=== PATIENT | male | born 1975 | race Caucasian/White ===

== ENCOUNTER 2017-03-27 09:48 | Day surgery (SDC) | payer OTHER ==
[~2017-03-27 09:48] MED LIST: SODIUM CHLORIDE 0.9% 1,000 ML IV SCH
[2017-03-27 10:50] LABS: Basophils # (A) 0.1 k/uL (0-0.2); Basophils % (A) 1 %; Eosinophils # (A) 0.3 k/uL (0-0.7); Eosinophils % (A) 3 %; HCT 42.9 % (39.0-53.0); HGB 14.4 gm/dL (13.0-17.5); Lymphocytes # (A) 2.3 k/uL (1.0-4.8); Lymphocytes % (A) 26 %; MCH 30.6 pg (25.0-35.0); MCHC 33.6 g/dL (31.0-37.0); MCV 91.3 fL (80.0-100.0); Mean Platelet Volume 7.5; Monocytes # (A) 0.6 k/uL (0-1.0); Monocytes % (A) 7 %; Neutrophils # (A) 5.3 k/uL (1.3-7.7); Neutrophils % (A) 60 %; Platelet Count 280 k/uL (150-450); RDW 13.4 % (11.5-15.5); WBC 8.7 k/uL (3.8-10.6)
[2017-03-27 10:53] LABS: Anion Gap 9 mmol/L; Blood Urea Nitrogen 25 mg/dL (9-20); Calcium 9.4 mg/dL (8.4-10.2); Carbon Dioxide 26 mmol/L (22-30); Chloride 107 mmol/L (98-107); Glucose 109 mg/dL (74-99); Potassium 4.4 mmol/L (3.5-5.1); Sodium 142 mmol/L (137-145)
[2017-03-27] MEDS ORDERED: LIDOCAINE 1% INJ 10MG/ML (20 ML MDV) ONE (11:36)
[2017-03-27] MEDS ORDERED: PROTAMINE SULFATE 10 MG/ML 5 ML VIAL IV ONE (11:36)
[2017-03-27] MEDS ORDERED: PROPOFOL 10 MG/ML 20 ML VIAL IV ONE (11:36)
[2017-03-27] MEDS ORDERED: HEPARIN SODIUM,PORCINE 10,000 UNIT/ML 1 ML VIAL ONE (11:36)
[2017-03-27] MEDS ORDERED: FUROSEMIDE 10 MG/ML 2 ML VIAL ONE (11:36)
[2017-03-27] MEDS ORDERED: ISOPROTERENOL 250 MCG/1.25 ML SYR IV ONE (11:36)
[2017-03-27] MEDS ORDERED: HYDROmorphone (PF) 1 MG/ML ONE (11:36)
[2017-03-27] MEDS ORDERED: fentaNYL (PF) 50 MCG/ML 2 ML AMP ONE (11:36)
[2017-03-27] MEDS ORDERED: MIDAZOLAM 2 MG/2 ML VIAL ONE (11:36)
[2017-03-27] MEDS ORDERED: SUCCINYLCHOLINE CHLORIDE 100 MG/5 ML SYR IV ONE (11:36)
[2017-03-27] MEDS ORDERED: LIDOCAINE 2% INJ 20 MG/ML SQ ONE (12:22)
[2017-03-27] MEDS ORDERED: HEPARIN SOD,PORK IN 0.45% NACL 25,000 UNIT in 0.45% NACL 1 500ML.BAG IV ONE ×2 (12:55)
[2017-03-27] MEDS ORDERED: HYDROcodone/APAP 5-325MG 1 EACH TAB PO PRN (14:20)
[2017-03-27] MEDS ORDERED: ACETAMINOPHEN TAB 325 MG TAB PO PRN (14:20)
[2017-03-27] MEDS ORDERED: ACETAMINOPHEN IV (For NPO) 1,000 MG in EMPTY BAG 1 BAG IVPB ONE (14:20)
[2017-03-27] MEDS ORDERED: IOHEXOL 350 MG/ML 100 ML BOTTLE INJ ONE (14:24)
[2017-03-27] MEDS ORDERED: SODIUM CHLORIDE 0.9% 1,000 ML IV ONE (14:29)
--- NOTE | 2017-03-27 14:37 | P.PCN ---
Preoperative Diagnosis: Procedures performed ([facility] - CRYO Ablation) Indication for the procedure, symptomatic A. fib with RVR, paroxysmal and refractory to 2 antiarrhythmic drugs Procedures performed Invasive hemodynamic monitoring while general anesthesia, right femoral arterial line for monitoring and sampling Comprehensive diagnostic EP study with attempted arrhythmia induction CS pacing and recording Drug infusion Catheter the mapping of the tachycardia (NOT 3D mapping) Intracardiac echocardiography Pulmonary vein isolation with transseptal and comprehensive EPS, [id number] Procedure details Patient was brought to the EP lab in a fasting state. Written informed consent was obtained prior to the procedure. Procedure performed under general anesthesia After initial muscle relaxant use, muscle relaxants were not given thereafter in order to assess phrenic nerve during procedure Patient prepped and draped as per protocol Full cryo-set up with standard preparation of the cryoablation tools done Femoral Venous access obtained on the right and left groins Sheaths placed Diagnostic catheters for the high right atrium, phrenic nerve stimulation and pacing, His bundle, RV and coronary sinus placed Intracardiac echo catheter placed Long sheath placed in the right atrium Left and right transseptal catheterization performed under intracardiac echo guidance Intravenous heparin with aCT above 300 Later, catheter positioning and balloon positioning under intracardiac echo Baseline measurements Sinus cycle length 823 ms, AZ interval 113 ms, QRS 97 ms and QT interval 378 ms. AH 43 ms, HV 41 ms Comprehensive diagnostic EP study with drug infusion Atrial pacing performed from the high right atrium and the coronary sinus Sinus recovery times at 600 504 ms were 1149, 1260 and 1304 ms. Corresponding currently sinus recovery times were within normal limits AV node Wenckebach block 320 ms Atrial extra stimulation 500/200 ms atrial ERP On Isuprel AV node Wenckebach block less than 200 ms On Isuprel VA Wenckebach block less than 200 ms No atrial fibrillation induced on Isuprel Transseptal catheterization performed RA pressure 9/2 LA pressure is 14/4 Transseptal catheterization performed with standard sheath. The cryoablation sheath was then placed with an over the wire exchange without any acute complications. All 4 pulmonary veins were isolated in the following sequence: Left superior followed by left inferior followed by right superior followed by right inferior The cryo-ablation balloon was placed at the os of each vein 1.5 mL of IV dye was injected to confirm an occluded vein Goal during cryoablation was to achieve -30C in the first 30 seconds. If not the balloon was repositioned to obtain this result After completion of Cryoblation with durations from 180-240 seconds, entrance block was confirmed with the Attain circular catheter in a roving fashion around the antrum of the pulmonary veins Phrenic nerve pacing was performed from the SVC, right innominate vein area and diaphragm voltage was monitored as well as manually Parameter goals for each cryo freeze -30C by 30 seconds -40C by 60 seconds Mediated between minus 40-55 Thaw time greater than 10 seconds Balloon visualized by intracardiac echo to ensure that the proximal one third was within the left atrium/antrum Left superior pulmonary vein 129 seconds followed by 180 seconds cryoablation lesions. Time to effect was 22 seconds in the second cryoablation Complete entrance and exit block Left inferior pulmonary vein 61 seconds followed by a 240 second cryoablation lesion on the second ablation time to effect was 53 seconds complete entrance and exit block Right superior pulmonary vein, during phrenic nerve pacing 242nd cryoablation, complete entrance and exit block of right superior and right middle of May veins Right inferior pulmonary vein, during phrenic nerve pacing 90+120 seconds cryoablation, complete entrance and exit block At the end of the procedure the Achieve catheter was once again used to check for entrance block Phrenic nerve stimulation was performed to confirm diaphragmatic stimulation the end of the procedure Cine fluoroscopy was performed at the very end of the procedure to confirm movement of both diaphragms with inspiration and expiration At the end of the procedure the patient was extubated Heparin was reversed Venous sheaths were removed and hemostasis assured Result Successful pulmonary vein isolation using cryo-ablation Complete entrance block and exit block in all 4 veins confirmed No evidence for phrenic nerve injury Anesthesia: GETA Condition: stable Disposition: floor
[2017-03-27 16:32] VITALS: BMI 34.2
[2017-03-27] MEDS ORDERED: PROPAFENONE 150 MG TAB PO SCH (21:00)
[2017-03-27] MEDS: APIXABAN 5 MG TAB PO SCH (21:18)
[2017-03-27] MEDS: FLECAINIDE 50 MG TAB PO SCH (21:18)
[2017-03-28 07:37] VITALS: RESP 18
[2017-03-28] MEDS: APIXABAN 5 MG TAB PO SCH (08:29)
[2017-03-28] MEDS: FLECAINIDE 50 MG TAB PO SCH (08:29)
[2017-03-28] MEDS ORDERED: APIXABAN 5 MG TAB PO SCH (09:00)
--- NOTE | 2017-03-28 11:05 | P.DS ---
Providers Attending physician: Jovan Hall Primary care physician: [facility] Course: Patient is doing well from a cardiac standpoint. He has a vague discomfort in the chest but no pain. He is lying comfortably in bed. No JVD mild sore throat no dizziness lightheadedness. He looks comfortable. No respiratory distress Groin site healed well no hematoma abdomen soft nontender on examination Heart sounds S1 and S2 are normal no murmurs or gallops Breath sounds are clear no rhonchi no crackles No JVD Impression Symptomatic paroxysmal atrial fibrillation with RVR, refractory to class on antiarrhythmic drug therapy, both flecainide and Rythmol Status post pulmonary vein isolation, successful with entrance and exit block, cryoablation Plan Ambulate in the hallways and if groins healing well than discharge by 5 PM today Continue anticoagulation for at least 2 months post ablation Follow-up in 1-2 weeks for a groin check Patient Condition at Discharge: Stable Plan - Discharge Summary Discharge Rx Participant: Yes New Discharge Prescriptions: Continue RX: Apixaban [Eliquis] 5 mg PO BID No Action RX: Flecainide Acetate 100 mg PO BID Discharge Medication List RX: Apixaban [Eliquis] 5 mg PO BID 03/22/17 [History] RX: Flecainide Acetate 100 mg PO BID 03/27/17 [History] Follow up Appointment(s)/Referral(s): Jovan Hall MD [STAFF PHYSICIAN] - 2 Weeks (Appointment made for groin check on Apr.01 at 8:45am.) Activity/Diet/Wound Care/Special Instructions: Post EP study - Ablation instructions 1. Keep access sites dry for 2 days. 2. No heavy lifting or straining for 2 days. 3. Avoid bending the hips repeatedly for 2 days. 4. You may go up and down stairs slowly Call if the following is noted 1. Bleeding, increasing swelling or pain at the access sites. 2. Increasing chest discomfort, especially upon taking a deep breath. 3. Increasing shortness of breath, at rest or with exertion. 4. Undue cough / phlegm 5. Difficulty or pain while swallowing. 6. Pain or change in color in the extremities. 7. Fever, chills, rigors. 8. Increasing headache or neurologic symptoms. 9. Dizziness, fainting, palpitations Continue ELIQUIS, continue Rythmol Follow Dr. Chung in 2 weeks for a groin check Discharge home in hemodynamically stable ambulate in the hallways no groin problems and asymptomatic on march after 5 PM Discharge Disposition: HOME SELF-CARE
[2017-03-28 11:22] VITALS: BP 125/78; PULSE 83; TEMP 98.4
== END 2017-03-28 17:24 | disposition home or self-care (01) ==
LOC: CATHEP 09:48 → 3OBS 14:25 → CATHEP 03-28 17:24
PROVIDERS: ATTEND Internal Medicine Clinical Cardiac Electrophysiology
DX: I48.0 Paroxysmal atrial fibrillation (principal); E78.5 Hyperlipidemia, unspecified; R03.0 Elevated blood-pressure reading, without diagnosis of hypertension; Z79.01 Long term (current) use of anticoagulants; Z79.899 Other long term (current) drug therapy; Z87.891 Personal history of nicotine dependence
CPT/HCPCS: 85347; 93623; 93662; 93609; 93656; 80048; 85025; C1769 ×4; C1894 ×3; C1730 ×3; C1759; C1893; C1733; C1766; J2001 ×2; J2250; J2720; J1644 ×2; J1940; Q9967; J3010; J1170; J0131; J0330; J2704

== ENCOUNTER → 2019-03-13 | Outpatient (CLI) | payer OTHER ==
--- NOTE | 2019-03-13 17:57 | XR ---
EXAMINATION TYPE: XR lumbar spine 2 or 3V DATE OF EXAM: 03/13/2019 COMPARISON: NONE HISTORY: Low back pain TECHNIQUE: 3 views FINDINGS: Lumbar vertebra have normal alignment. Posterior elements are intact. There is no compressi on fracture. Relate joints appear normal. IMPRESSION: Negative lumbar spine exam. No fracture.
== END | disposition home or self-care (01) ==
LOC: RAD 16:59
PROVIDERS: ATTEND Emergency Medicine
DX: S33.5XXA Sprain of ligaments of lumbar spine, initial encounter (principal)
CPT/HCPCS: 72100

== ENCOUNTER 2021-04-09 11:20 | Emergency (ER) | payer BC, OTHER ==
[2021-04-09 11:28] VITALS: RESP 18; TEMP 97.9
--- NOTE | 2021-04-09 12:19 | ED ---
General Adult HPI - General Chief complaint: Extremity Problem,Nontraumatic Stated complaint: lt knee pain Time Seen by Provider: 04/09/21 11:45 Source: patient, RN notes reviewed Mode of arrival: ambulatory Limitations: no limitations - History of Present Illness Initial comments: Patient is a pleasant 45-year-old male presenting to the emergency Department with left knee pain. Patient does have history of fracture as a child and occasionally does get discomfort. Patient was moving heavy objects yesterday when he felt sudden discomfort. Discomfort is inside the knee. Discomfort increases with movement. Patient is able to bear weight. No weakness. - Related Data Previous Rx's Medication Instructions Recorded Ibuprofen [Motrin] 600 mg PO Q6HR PRN #20 tab 04/09/21 Allergies Allergy/AdvReac Type Severity Reaction Status Date / Time bee venom protein (honey bee) Allergy Anaphylaxis Verified 04/09/21 12:38 cortisone AdvReac Given Verified 04/09/21 12:38 Benadryl/Cortisone together"insides felt like on fire" diphenhydramine AdvReac Given Verified 04/09/21 12:38 [From Benadryl] Benadryl/Cortisone together"insides felt like on fire" onion AdvReac Canker Verified 04/09/21 12:38 Sores Review of Systems ROS Statement: Those systems with pertinent positive or pertinent negative responses have been documented in the HPI. ROS Other: All systems not noted in ROS Statement are negative. Constitutional: Denies: fever Eyes: Denies: eye pain ENT: Denies: ear pain Respiratory: Denies: cough Cardiovascular: Denies: chest pain Endocrine: Denies: fatigue Gastrointestinal: Denies: abdominal pain Genitourinary: Denies: dysuria Musculoskeletal: Reports: arthralgia Skin: Denies: rash Neurological: Denies: weakness Past Medical History Past Medical History: Atrial Fibrillation, Sleep Apnea/CPAP/BIPAP Additional Past Medical History / Comment(s): Uses CPAP. History of Any Multi-Drug Resistant Organisms: MRSA Date of last positivie culture/infection: 2005 MDRO Source:: foot right baby toe Past Surgical History: No Surgical Hx Reported Additional Past Surgical History / Comment(s): Lower intestine fistula surgery. Past Anesthesia/Blood Transfusion Reactions: No Reported Reaction Past Psychological History: No Psychological Hx Reported Smoking Status: Current every day smoker Past Alcohol Use History: None Reported Past Drug Use History: Marijuana - Past Family History Father Family Medical History: Myocardial Infarction ([place]) Additional Family Medical History / Comment(s): in early 60's General Exam Limitations: no limitations General appearance: alert, in no apparent distress Head exam: Present: normocephalic Eye exam: Present: normal appearance Neck exam: Present: normal inspection Respiratory exam: Present: normal lung sounds bilaterally Cardiovascular Exam: Present: regular rate, normal rhythm Expanded Peripheral pulses: 2+: Posterior Tibialis (L), Dorsalis Pedis (L) GI/Abdominal exam: Present: soft. Absent: tenderness Extremities exam: Present: tenderness (Mild anterior knee tenderness) Left Knee exam: Present: normal inspection, full ROM, tenderness. Absent: swelling, abrasion, laceration, ecchymosis, deformity, crepitus, dislocation, erythema, pain/laxity with valgus, pain/laxity with varus Neurological exam: Present: alert Psychiatric exam: Present: normal affect, normal mood Skin exam: Present: normal color Course Vital Signs 04/09/21 11:24 Temperature 97.9 F Pulse Rate 99 Respiratory 18 Rate Blood Pressure 144/99 O2 Sat by Pulse 97 Oximetry Medical Decision Making - Radiology Data Radiology results: image reviewed (Left knee x-ray shows no acute process) Disposition Clinical Impression: Sprain of left knee Disposition: HOME SELF-CARE Condition: Stable Instructions (If sedation given, give patient instructions): Knee Pain (ED) Additional Instructions: Please follow-up with primary care physician or orthopedics in the next couple days for recheck. Ice to affected area. Limit weightbearing and movement of the leg. Use knee immobilizer, provided. Return for increased pain, swelling, fever, worsening or changing symptoms or other concerns. Prescription for Motrin 600 to pharmacy Prescriptions: Ibuprofen [Motrin] 600 mg PO Q6HR PRN #20 tab PRN Reason: Pain Is patient prescribed a controlled substance at d/c from ED?: No Referrals: Shiela Diez DO [Doctor of Osteopathic Medicine] - 1-2 days Navneet Up MD [STAFF PHYSICIAN] - 1-2 days Time of Disposition: 12:46
--- NOTE | 2021-04-09 12:31 | XR ---
EXAMINATION TYPE: XR knee complete LT DATE OF EXAM: 04/09/2021 COMPARISON: NONE HISTORY: Pain TECHNIQUE: Three views are submitted. FINDINGS: Joint spaces are preserved. Osseous structures are intact. No acute fracture seen. Minimal spurrin g along the medial compartment of the knee joint. There is a well-circumscribed lucent lesion involvi ng the proximal tibia likely benign IMPRESSION: 1. No acute fracture or dislocation.
[2021-04-09] MEDS ORDERED: ACET/COD 300 MG/30 MG STARTER PACK 6 TAB BTL PO STA (12:40)
[2021-04-09] MEDS ORDERED: KETOROLAC 15 MG/ML 1 ML VIAL IM STA (12:40)
[2021-04-09 13:01] VITALS: BP 131/87; PULSE 77
== END 2021-04-09 13:00 | disposition home or self-care (01) ==
LOC: EC 11:20
DX: S83.92XA Sprain of unspecified site of left knee, initial encounter (principal); F17.200 Nicotine dependence, unspecified, uncomplicated; I48.91 Unspecified atrial fibrillation; Z91.030 Bee allergy status; Z88.8 Allergy status to other drugs, medicaments and biological substances; Z91.018 Allergy to other foods; X50.0XXA Overexertion from strenuous movement or load, initial encounter
CPT/HCPCS: 73562; 99283; 96372; J1885

== ENCOUNTER → 2021-05-03 | Outpatient (CLI) | payer OTHER ==
--- NOTE | 2021-05-03 16:39 | XR ---
EXAMINATION TYPE: XR tibia fibula LT DATE OF EXAM: 05/03/2021 COMPARISON: NONE HISTORY: Pain TECHNIQUE: 4 views FINDINGS: There is minor spurring at the distal tibia. Ankle mortise is anatomic. Knee joint is intac t. I see no fracture nor dislocation. IMPRESSION: Negative left tibia and fibula exam.
--- NOTE | 2021-05-03 16:40 | XR ---
EXAMINATION TYPE: XR knee complete LT DATE OF EXAM: 05/03/2021 COMPARISON: NONE HISTORY: Pain TECHNIQUE: 3 views FINDINGS: There is no sign of fracture nor dislocation. Joint spaces are fairly normal. There is mild spurring of the medial femoral and tibial condyles. There is no sign of joint effusion. IMPRESSION: Minor osteoarthritis. No fracture.
== END | disposition home or self-care (01) ==
LOC: RADXRMAIN 16:08
PROVIDERS: ATTEND Emergency Medicine
DX: S80.12XA Contusion of left lower leg, initial encounter (principal); S80.02XA Contusion of left knee, initial encounter; X58.XXXA Exposure to other specified factors, initial encounter

== ENCOUNTER 2023-05-05 19:57 | Emergency (ER) | payer OTHER ==
[2023-05-05 20:27] VITALS: RESP 16; TEMP 98
[2023-05-05] MEDS: SODIUM CHLORIDE 0.9% 1,000 ML IV STA (20:49)
[2023-05-05] MEDS: ONDANSETRON 4 MG/2 ML VIAL IVP STA (20:51)
[2023-05-05] MEDS: KETOROLAC 15 MG/ML 1 ML VIAL IVP STA (20:53)
[2023-05-05] MEDS: MORPHINE SULFATE 4 MG/ML SYRINGE IVP STA (20:55)
[2023-05-05 21:11] LABS: Basophils # (A) 0.1 k/uL (0-0.2); Basophils % (A) 1 %; Eosinophils # (A) 0.3 k/uL (0-0.7); Eosinophils % (A) 3 %; HCT 45.4 % (39.0-53.0); HGB 15.6 gm/dL (13.0-17.5); Lymphocytes # (A) 4.2 k/uL (1.0-4.8); Lymphocytes % (A) 33 %; MCH 30.9 pg (25.0-35.0); MCHC 34.3 g/dL (31.0-37.0); MCV 90.3 fL (80.0-100.0); Monocytes # (A) 0.8 k/uL (0-1.0); Monocytes % (A) 6 %; Neutrophils # (A) 7.3 k/uL (1.3-7.7); Neutrophils % (A) 56 %; Platelet Count 322 k/uL (150-450); RBC 5.03 m/uL (4.30-5.90); RDW 12.9 % (11.5-15.5)
[2023-05-05 21:28] LABS: ALT 18 U/L (4-49); AST 21 U/L (17-59); African American GFR (CKD) >90 (>60 ml/min/1.73 sqM); Albumin 4.4 g/dL (3.5-5.0); Alkaline Phosphatase 78 U/L (38-126); Amylase 62 U/L (30-110); Anion Gap 11 mmol/L; Blood Urea Nitrogen 22 mg/dL (9-20); Calcium 9.7 mg/dL (8.4-10.2); Carbon Dioxide 21 mmol/L (22-30); Chloride 104 mmol/L (98-107); Glucose 160 mg/dL (74-99); Lipase 341 U/L (23-300); Non-African American GFR(CKD) >90 (>60 ml/min/1.73 sqM); Potassium 4.1 mmol/L (3.5-5.1); Sodium 136 mmol/L (137-145); Total Bilirubin 0.7 mg/dL (0.2-1.3); Total Protein 6.9 g/dL (6.3-8.2)
[2023-05-05 22:19] LABS: Appearance,Urine Clear (Clear); Bilirubin,Urine Negative (Negative); Blood,Urine Negative (Negative); Color,Urine Colorless; Glucose,Urine (UA) Negative (Negative); Ketones,Urine Negative (Negative); Leukocyte Esterase,Urine Trace (Negative); Mucus,Urine Rare /hpf; Nitrite,Urine Negative (Negative); Protein,Urine Negative (Negative); RBC,Urine 2 /hpf (0-5); Squamous Epithelial Cell,Urine <1 /hpf (0-4); Urobilinogen,Urine <2.0 mg/dL (<2.0); WBC,Urine 8 /hpf (0-5)
[2023-05-05 22:20] LABS: Specific Gravity,Urine >1.050 (1.001-1.035)
--- NOTE | 2023-05-05 23:16 | CT ---
EXAMINATION TYPE: CT abdomen pelvis w con CT DLP: 1447.2 mGycm, Automated exposure control for dose reduction was used. DATE OF EXAM: 05/05/2023 9:25 PM COMPARISON: None. CLINICAL INDICATION:Male, 47 years old with history of abdominal pain; Pt. c/o lower abdominal pressu re. Denies N/V. LBM this morning. Symptoms present x3 days. TECHNIQUE: Axial CT of the abdomen and pelvis. Sagittal and coronal reformats were created on a [employer] workstation. Contrast used:100 ml mL of Isovue 370 with IV Contrast, (none if empty) Oral contrast used: without Oral Contrast (none if empty) FINDINGS: LOWER CHEST: Mild bibasilar atelectasis. Normal heart size. Mild coronary artery calcifications. ABDOMEN LIVER: Unremarkable GALLBLADDER AND BILE DUCTS: Partially contracted gallbladder without evidence of calcified stones. No biliary dilatation seen. PANCREAS: Parenchyma appears homogeneously enhancing. There is mild peripancreatic fat stranding in t he region of the pancreatic body with suspicion of mild edema of this segment. Mildly prominent regio nal lymph nodes are likely reactive. There is no peripancreatic fluid collection seen. SPLEEN: Unremarkable. ADRENAL GLANDS: Mildly thickened, may be seen with hyperplasia.. KIDNEYS AND URETERS: Kidneys enhance symmetrically. No evidence of hydronephrosis or visible renal ca lculus. The ureters are unremarkable. PELVIS BLADDER: Unremarkable REPRODUCTIVE: Unremarkable prostate. ABDOMEN & PELVIS STOMACH AND BOWEL: Stomach and small bowel are nondistended, no evidence of obstruction. Small calc ific density along the inferior aspect of the stomach, could be within the lumen or wall. Multiple s tippled radiodensities throughout the small bowel, likely some sort of ingested material. The appendi x appears within normal limits. There is a moderate amount of stool in the proximal colon, with much less distally where the colon appears decompressed and not well assessed. There may be scattered dive rticula. No focal inflammatory process is seen. PERITONEUM/RETROPERITONEUM: No evidence of pneumoperitoneum or free fluid. VASCULATURE: Mild atherosclerotic calcifications are present throughout the abdominal aorta and its b ranches. No evidence of aortic aneurysm; there is minimal ectasia in the infrarenal segment. Dual ri ght renal arteries and single left renal artery noted. Portal veins are enhancing. Splenic vein is p atent. LYMPH NODES: No enlarged nodes by CT size criteria. SOFT TISSUE/ABDOMINAL WALL: Unremarkable MUSCULOSKELETAL: No acute osseous abnormalities. Mild degenerative changes. Bilateral L5 pars defect s with mild degenerative disc changes and trace anterolisthesis L5-S1. IMPRESSION: Findings suggest uncomplicated pancreatitis. Please correlate clinically with serum laboratory values .
[2023-05-05 23:56] VITALS: BP 112/72; PULSE 75
--- NOTE | 2023-05-06 00:10 | ED ---
Abdominal Pain HPI - General Chief Complaint: Abdominal Pain Stated Complaint: abd pain Time Seen by Provider: 05/05/23 20:15 Source: patient Mode of arrival: ambulatory Limitations: no limitations - History of Present Illness Initial Comments: 47-year-old male present with chief complaint of abdominal pain. Patient admits to abdominal pressure. Initially started as lower abdominal pressure, now diffuse pain. He denies nausea and vomiting. His last bowel movement was this morning. Symptoms have been ongoing for the last 3 days. Patient has history of anal fistula repair, patient does not have history of inflammatory bowel disease. No fevers. No chest pain or difficulty breathing. No URI-like symptoms. No urinary symptoms. No diarrhea, hematochezia, melena. Does not drink alcohol. - Related Data Previous Rx's Medication Instructions Recorded Ibuprofen [Motrin] 600 mg PO Q6HR PRN #20 tab 04/09/21 HYDROcodone/APAP 7.5-325MG [[place] 1 tab PO Q6HR PRN 3 Days #12 tab 05/06/23 7.5-325] Ondansetron Odt [Zofran Odt] 4 mg PO Q8HR PRN #20 tab 05/06/23 Allergies Allergy/AdvReac Type Severity Reaction Status Date / Time bee venom protein (honey bee) Allergy Anaphylaxis Verified 05/05/23 20:01 cortisone AdvReac Given Verified 05/05/23 20:01 Benadryl/Cortisone together"insides felt like on fire" diphenhydramine AdvReac Given Verified 05/05/23 20:01 [From Benadryl] Benadryl/Cortisone together"insides felt like on fire" onion AdvReac Canker Verified 05/05/23 20:01 Sores Review of Systems ROS Statement: Those systems with pertinent positive or pertinent negative responses have been documented in the HPI. ROS Other: All systems not noted in ROS Statement are negative. Past Medical History Past Medical History: Atrial Fibrillation, COPD, Diabetes Mellitus, Sleep Apnea/CPAP/BIPAP Additional Past Medical History / Comment(s): Uses CPAP. History of Any Multi-Drug Resistant Organisms: MRSA Date of last positivie culture/infection: 2005 MDRO Source:: foot right baby toe Past Surgical History: No Surgical Hx Reported Additional Past Surgical History / Comment(s): Lower intestine fistula surgery. Past Anesthesia/Blood Transfusion Reactions: No Reported Reaction Past Psychological History: No Psychological Hx Reported Smoking Status: Current every day smoker Past Alcohol Use History: None Reported Past Drug Use History: Marijuana - Past Family History Father Family Medical History: Myocardial Infarction (ID) Additional Family Medical History / Comment(s): in early 60's General Exam Limitations: no limitations General appearance: alert, in no apparent distress Head exam: Present: atraumatic, normocephalic Eye exam: Present: normal appearance Neck exam: Present: normal inspection Respiratory exam: Present: normal lung sounds bilaterally. Absent: respiratory distress, wheezes, rales, rhonchi, stridor Cardiovascular Exam: Present: regular rate, normal rhythm, normal heart sounds. Absent: systolic murmur, diastolic murmur, rubs, gallop, clicks GI/Abdominal exam: Present: soft, tenderness. Absent: distended, guarding, rebound, rigid Neurological exam: Present: alert, oriented X3 Psychiatric exam: Present: normal affect, normal mood Skin exam: Present: warm, dry Course Vital Signs 05/05/23 05/05/23 19:57 23:26 Temperature 98.0 F Pulse Rate 99 75 Respiratory 16 16 Rate Blood Pressure 134/86 112/72 O2 Sat by Pulse 98 95 Oximetry Medical Decision Making - Medical Decision Making Was pt. sent in by a medical professional or institution (JOHN Carreon, UNDERGRADUATE ADVISOR, urgent care, hospital, or [place] health care facility...) When possible be specific @ -No Did you speak to anyone other than the patient for history (EMS, parent, family, police, friend...)? What history was obtained from this source @ -No Did you review nursing and triage notes (agree or disagree)? Why? @ -I reviewed and agree with nursing and triage notes Were old charts reviewed (outside hosp., previous admission, EMS record, old E KG, old radiological studies, urgent care reports/EKG's, [place] health care facility records)? Report findings @ -No old charts were reviewed Differential Diagnosis (chest pain, altered mental status, abdominal pain women, abdominal pain men, vaginal bleeding, weakness, fever, dyspnea, syncope, headache, dizziness, GI bleed, back pain, seizure, CVA, palpatations, mental health, musculoskeletal)? @ -[facility] Differential Abdominal Pain Men: Appendicitis, cholecystitis, diverticulosis, ischemic bowel, pancreatitis, hepatitis, UTI, gastroenteritis, AAA, incarcerated hernia, bowel obstruction, constipation, inflammatory bowel, hepatitis, peptic ulcer disease, splenic infarction, perforated viscus, testicular torsion... This is not meant to be an all-inclusive list EKG interpreted by me (3pts min.). @ -As above X-rays interpreted by me (1pt min.). @ -None done CT interpreted by me (1pt min.). @ -CT is suggestive of uncomplicated pancreatitis. U/S interpreted by me (1pt. min.). @ -None done What testing was considered but not performed or refused? (CT, X-rays, U/S, labs)? Why? @ -None What meds were considered but not given or refused? Why? @ -None Did you discuss the management of the patient with other professionals (professionals i.e. , PA, UNDERGRADUATE ADVISOR, lab, RT, psych nurse, oncology social work, news library director, teacher, combat systems officer, major case detective)? Give summary @ -No Was smoking cessation discussed for >3mins.? @ -No Was critical care preformed (if so, how long)? @ -No Were there social determinants of health that impacted care today? How? (Homelessness, low income, unemployed, alcoholism, drug addiction, transportation, low edu. Level, literacy, decrease access to med. care, skilled nursing, rehab)? @ -No Was there de-escalation of care discussed even if they declined (Discuss DNR or withdrawal of care, Hospice)? DNR status @ -No What co-morbidities impacted this encounter? (DM, HTN, Smoking, COPD, CAD, Cancer, CVA, ARF, Chemo, Hep., AIDS, mental health diagnosis, sleep apnea, morbid obesity)? @ -None Was patient admitted / discharged? Hospital course, mention meds given and route, prescriptions, significant lab abnormalities, going to OR and other pertinent info. @ -47-year-old male present with chief complaint of abdominal pain. I had physical exam there is tenderness which is most prominent in the left upper quadrant. Lab work shows WBC 13. Lipase is 341. Total bilirubin AST and ALT are WNL. CT suggestive of uncomplicated pancreatitis. No evidence of gallstones or dilated common bile duct. Patient is educated on today's findings. His pain is under control. He is offered admission, he would prefer to be discharged home. Given his mild lipase elevation and stable vitals I starr freemanduy this is reasonable. He is educated on alarm symptoms that should prompt reevaluation. Provided with pain and nausea medication and instructed to follow liquid diet for the next 2 days and gradually increase to normal diet. Follow- up with PCP. Report back to ER with any new or worsening symptoms. Discussed return parameters and answered all questions. Patient conveyed verbal understanding and agreed to the plan. I discussed this case in detail with my attending Dr. Fuller Undiagnosed new problem with uncertain prognosis? @ -No Drug Therapy requiring intensive monitoring for toxicity (Heparin, Nitro, Insulin, Cardizem)? @ -No Were any procedures done? @ -No Diagnosis/symptom? @ -Pancreatitis Acute, or Chronic, or Acute on Chronic? @ -Acute Uncomplicated (without systemic symptoms) or Complicated (systemic symptoms)? @ -Uncomplicated Side effects of treatment? @ -No Exacerbation, Progression, or Severe Exacerbation? @ -No Poses a threat to life or bodily function? How? (Chest pain, USA, ID, pneumonia, PE, COPD, DKA, ARF, appy, cholecystitis, CVA, Diverticulitis, Homicidal, Suicidal, threat to staff... and all critical care pts) @ -Low likelihood - Lab Data Result diagrams: 05/05/23 20:48 05/05/23 20:48 Lab Results 05/05/23 05/05/23 05/05/23 Range/Units 20:48 20:48 20:48 WBC 13.0 H (3.8-10.6) k/uL RBC 5.03 (4.30-5.90) m/uL Hgb 15.6 (13.0-17.5) gm/dL Hct 45.4 (39.0-53.0) % MCV 90.3 (80.0-100.0) fL MCH 30.9 (25.0-35.0) pg MCHC 34.3 (31.0-37.0) g/dL RDW 12.9 (11.5-15.5) % Plt Count 322 (150-450) k/uL MPV 8.0 Neutrophils % 56 % Lymphocytes % 33 % Monocytes % 6 % Eosinophils % 3 % Basophils % 1 % Neutrophils # 7.3 (1.3-7.7) k/uL Lymphocytes # 4.2 (1.0-4.8) k/uL Monocytes # 0.8 (0-1.0) k/uL Eosinophils # 0.3 (0-0.7) k/uL Basophils # 0.1 (0-0.2) k/uL Sodium 136 L (137-145) mmol/L Potassium 4.1 (3.5-5.1) mmol/L Chloride 104 (98-107) mmol/L Carbon Dioxide 21 L (22-30) mmol/L Anion Gap 11 mmol/L BUN 22 H (9-20) mg/dL Creatinine 0.80 (0.66-1.25) mg/dL Est GFR (CKD-EPI)AfAm >90 (>60 ml/min/1.73 sqM) Est GFR (CKD-EPI)NonAf >90 (>60 ml/min/1.73 sqM) Glucose 160 H (74-99) mg/dL Plasma Lactic Acid Demetri 1.0 (0.7-2.0) mmol/L Calcium 9.7 (8.4-10.2) mg/dL Total Bilirubin 0.7 (0.2-1.3) mg/dL AST 21 (17-59) U/L ALT 18 (4-49) U/L Alkaline Phosphatase 78 (38-126) U/L Troponin I (0.000-0.034) ng/mL Total Protein 6.9 (6.3-8.2) g/dL Albumin 4.4 (3.5-5.0) g/dL Amylase 62 (30-110) U/L Lipase 341 H (23-300) U/L Urine Color Urine Appearance (Clear) Urine pH (5.0-8.0) Ur Specific [place] (1.001-1.035) Urine Protein (Negative) Urine Glucose (UA) (Negative) Urine Ketones (Negative) Urine Blood (Negative) Urine Nitrite (Negative) Urine Bilirubin (Negative) Urine Urobilinogen (<2.0) mg/dL Ur Leukocyte Esterase (Negative) Urine RBC (0-5) /hpf Urine WBC (0-5) /hpf Ur Squamous Epith Cells (0-4) /hpf Urine Mucus (None) /hpf 05/05/23 05/05/23 Range/Units 20:48 22:07 WBC (3.8-10.6) k/uL RBC (4.30-5.90) m/uL Hgb (13.0-17.5) gm/dL Hct (39.0-53.0) % MCV (80.0-100.0) fL MCH (25.0-35.0) pg MCHC (31.0-37.0) g/dL RDW (11.5-15.5) % Plt Count (150-450) k/uL MPV Neutrophils % % Lymphocytes % % Monocytes % % Eosinophils % % Basophils % % Neutrophils # (1.3-7.7) k/uL Lymphocytes # (1.0-4.8) k/uL Monocytes # (0-1.0) k/uL Eosinophils # (0-0.7) k/uL Basophils # (0-0.2) k/uL Sodium (137-145) mmol/L Potassium (3.5-5.1) mmol/L Chloride (98-107) mmol/L Carbon Dioxide (22-30) mmol/L Anion Gap mmol/L BUN (9-20) mg/dL Creatinine (0.66-1.25) mg/dL Est GFR (CKD-EPI)AfAm (>60 ml/min/1.73 sqM) Est GFR (CKD-EPI)NonAf (>60 ml/min/1.73 sqM) Glucose (74-99) mg/dL Plasma Lactic Acid Demetri (0.7-2.0) mmol/L Calcium (8.4-10.2) mg/dL Total Bilirubin (0.2-1.3) mg/dL AST (17-59) U/L ALT (4-49) U/L Alkaline Phosphatase (38-126) U/L Troponin I <0.012 (0.000-0.034) ng/mL Total Protein (6.3-8.2) g/dL Albumin (3.5-5.0) g/dL Amylase (30-110) U/L Lipase (23-300) U/L Urine Color Colorless Urine Appearance Clear (Clear) Urine pH 7.0 (5.0-8.0) Ur Specific [place] >1.050 H (1.001-1.035) Urine Protein Negative (Negative) Urine Glucose (UA) Negative (Negative) Urine Ketones Negative (Negative) Urine Blood Negative (Negative) Urine Nitrite Negative (Negative) Urine Bilirubin Negative (Negative) Urine Urobilinogen <2.0 (<2.0) mg/dL Ur Leukocyte Esterase Trace H (Negative) Urine RBC 2 (0-5) /hpf Urine WBC 8 H (0-5) /hpf Ur Squamous Epith Cells <1 (0-4) /hpf Urine Mucus Rare H (None) /hpf Disposition Clinical Impression: Pancreatitis Disposition: HOME SELF-CARE Condition: Good Instructions (If sedation given, give patient instructions): Pancreatitis (ED), Clear Liquid Diet (ED) Additional Instructions: Follow-up with PCP. Report back to ER with any new or worsening symptoms. Follow liquid diet for the next 2 days, then gradually move up to soft diet. Prescriptions: HYDROcodone/APAP 7.5-325MG [[place] 7.5-325] 1 tab PO Q6HR PRN 3 Days #12 tab PRN Reason: Pain Ondansetron Odt [Zofran Odt] 4 mg PO Q8HR PRN #20 tab PRN Reason: Nausea Is patient prescribed a controlled substance at d/c from ED?: Yes When asked, does pt state using other controlled substances?: No If prescribed controlled substance>3 days was MAPS reviewed?: Prescribed <3 Days If opioid is for acute pain is fill amount 7 days or less?: Yes Referrals: Scott Stovall MD [Primary Care Provider] - 1-2 days Time of Disposition: 00:09
== END 2023-05-06 00:35 | disposition home or self-care (01) ==
LOC: EC 19:57
DX: K85.90 Acute pancreatitis without necrosis or infection, unspecified (principal); I48.91 Unspecified atrial fibrillation; J44.9 Chronic obstructive pulmonary disease, unspecified; E11.9 Type 2 diabetes mellitus without complications; F17.200 Nicotine dependence, unspecified, uncomplicated; G47.30 Sleep apnea, unspecified; F12.90 Cannabis use, unspecified, uncomplicated; Z91.018 Allergy to other foods; Z88.8 Allergy status to other drugs, medicaments and biological substances; Z91.030 Bee allergy status
CPT/HCPCS: 36415; 93005; 80053; 82150; 83605; 83690; 84484; 85025; 81001; 74177; 99285; 96374; 96375 ×2; 96361 ×3; J2270; J2405; J1885; Q9967

== ENCOUNTER 2023-11-19 11:56 | Emergency (ER) | payer OTHER ==
--- NOTE | 2023-11-19 12:58 | XR ---
Right hand HISTORY: Third digit edema. COMPARISON: None TECHNIQUE: 3 views of the right hand were obtained. FINDINGS: There is no fracture or focal intraosseous abnormality. 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 There is a small 3 mm ossicle adjacent to the joint space within the soft tissue s. The remaining articulations are normal. IMPRESSION: 1. No acute trauma. 2. Mild degenerative changes of the DIP joint of the third digit with soft tissue calcification as de scribed above. [facility], , 11/19/2023 12:56 PM
--- NOTE | 2023-11-19 13:32 | ED ---
Upper Extremity HPI - General Chief Complaint: Extremity Injury, Upper Stated Complaint: R arm swelling/pain Time Seen by Provider: 11/19/23 13:32 Source: patient, RN notes reviewed Mode of arrival: ambulatory Limitations: no limitations - History of Present Illness Initial Comments: 48-year-old male presented to the ER with a chief complaint of right third digit pain/swelling. Patient states he woke up this morning and noticed this. He denies any injuries or traumas. Denies any paresthesias. No history of blood clots. No other complaints. - Related Data Previous Rx's Medication Instructions Recorded Ibuprofen [Motrin] 600 mg PO Q6HR PRN #20 tab 04/09/21 HYDROcodone/APAP 7.5-325MG [[place] 1 tab PO Q6HR PRN 3 Days #12 tab 05/06/23 7.5-325] Ondansetron Odt [Zofran Odt] 4 mg PO Q8HR PRN #20 tab 05/06/23 Allergies Allergy/AdvReac Type Severity Reaction Status Date / Time bee venom protein (honey bee) Allergy Anaphylaxis Verified 11/19/23 11:58 cortisone AdvReac Given Verified 11/19/23 11:58 Benadryl/Cortisone together"insides felt like on fire" diphenhydramine AdvReac Given Verified 11/19/23 11:58 [From Benadryl] Benadryl/Cortisone together"insides felt like on fire" onion AdvReac Canker Verified 11/19/23 11:58 Sores Review of Systems ROS Statement: Those systems with pertinent positive or pertinent negative responses have been documented in the HPI. ROS Other: All systems not noted in ROS Statement are negative. Past Medical History Past Medical History: Atrial Fibrillation, COPD, Diabetes Mellitus, Sleep Apnea/CPAP/BIPAP Additional Past Medical History / Comment(s): Uses CPAP. History of Any Multi-Drug Resistant Organisms: MRSA Date of last positivie culture/infection: 2005 MDRO Source:: foot right baby toe Past Surgical History: No Surgical Hx Reported Additional Past Surgical History / Comment(s): Lower intestine fistula surgery. Past Anesthesia/Blood Transfusion Reactions: No Reported Reaction Past Psychological History: No Psychological Hx Reported Smoking Status: Current every day smoker Past Alcohol Use History: None Reported Past Drug Use History: Marijuana - Past Family History Father Family Medical History: Myocardial Infarction ([place]) Additional Family Medical History / Comment(s): in early 60's General Exam Limitations: no limitations General appearance: alert, in no apparent distress Respiratory exam: Present: normal lung sounds bilaterally. Absent: respiratory distress, wheezes, rales, rhonchi, stridor Cardiovascular Exam: Present: regular rate, normal rhythm, normal heart sounds. Absent: systolic murmur, diastolic murmur, rubs, gallop, clicks Extremities exam: Present: normal inspection, full ROM, normal capillary refill, other (No edema noted on exam. Patient has full active range of motion. No focal bony tenderness. 2+ right radial pulse.) Neurological exam: Present: alert, oriented X3, CN II-XII intact Skin exam: Present: warm, dry, intact, normal color. Absent: rash Course Vital Signs 11/19/23 11/19/23 11:56 13:54 Temperature 97.9 F 97.6 F Pulse Rate 75 79 Respiratory 16 18 Rate Blood Pressure 142/85 136/80 O2 Sat by Pulse 99 99 Oximetry Medical Decision Making - Medical Decision Making Was pt. sent in by a medical professional or institution (, PA, TECHNOLOGY CONSULTANT, urgent care, hospital, or shelter...) When possible be specific @ -No Did you speak to anyone other than the patient for history (EMS, parent, family, police, friend...)? What history was obtained from this source @ -No Did you review nursing and triage notes (agree or disagree)? Why? @ -I reviewed and agree with nursing and triage notes Were old charts reviewed (outside hosp., previous admission, EMS record, old EKG, old radiological studies, urgent care reports/EKG's, shelter records)? Report findings @ -No old charts were reviewed Differential Diagnosis (chest pain, altered mental status, abdominal pain women, abdominal pain men, vaginal bleeding, weakness, fever, dyspnea, syncope, headache, dizziness, GI bleed, back pain, seizure, CVA, palpatations, mental health, musculoskeletal)? @ -Differential Musculoskeletal: Muscular strain, contusion, ligament sprain, fracture, arthritis, septic arthritis, bursitis, cellulitis, muscle spasm, nerve compression, DVT, arterial occlusion, herpes zoster, electrolyte abnormality, tumor.... This is not meant to be in all inclusive list EKG interpreted by me (3pts min.). @ -None done X-rays interpreted by me (1pt min.). @ -Right hand x-ray interpreted by me negative for acute traumas. There is mild degenerative changes in the DIP joint of the third digit with 3mm ossicle adjacent to joint space. CT interpreted by me (1pt min.). @ -None done U/S interpreted by me (1pt. min.). @ -None done What testing was considered but not performed or refused? (CT, X-rays, U/S, labs)? Why? @ -None What meds were considered but not given or refused? Why? @ -None Did you discuss the management of the patient with other professionals (professionals i.e. , PA, TECHNOLOGY CONSULTANT, lab, RT, psych nurse, rn social services, electrical prospector, teacher, retirement officer, pillowcase cleaner)? Give summary @ -No Was smoking cessation discussed for >3mins.? @ -No Was critical care preformed (if so, how long)? @ -No Were there social determinants of health that impacted care today? How? (Homelessness, low income, unemployed, alcoholism, drug addiction, transportation, low edu. Level, literacy, decrease access to med. care, long-term, rehab)? @ -No Was there de-escalation of care discussed even if they declined (Discuss DNR or withdrawal of care, Hospice)? DNR status @ -No What co-morbidities impacted this encounter? (DM, HTN, Smoking, COPD, CAD, Cancer, CVA, ARF, Chemo, Hep., AIDS, mental health diagnosis, sleep apnea, morbid obesity)? @ -None Was patient admitted / discharged? Hospital course, mention meds given and route, prescriptions, significant lab abnormalities, going to OR and other pertinent info. @ -Discharged. 48-year-old male presented to ER with a chief complaint of right third digit edema. History and physical exam completed. Vitals within the limits. Patient in no signs of acute distress and nontoxic-appearing. Exam unremarkable. Patient has full active range of motion of right third digit there is no overlying skin changes. No edema present. No focal bony tenderness. X-rays obtained negative for fractures or dislocations. There is mild degenerative changes of the DIP joint with a 3 mm ossicle adjacent to the joint space. This is believed to be causing the discomfort. Patient refused analgesic medications. Upon reevaluation, patient sleeping in exam room no signs of acute distress. Results discussed with patient, all questions answered. Conservative treatment options discussed. Return parameters discussed. Advise close follow-up with PCP for further evaluation and treatment. Patient verbally expressed understanding agree with care plan. Case discussed with the attending, Dr. Whittaker. Undiagnosed new problem with uncertain prognosis? @ -No Drug Therapy requiring intensive monitoring for toxicity (Heparin, Nitro, Insulin, Cardizem)? @ -No Were any procedures done? @ -No Diagnosis/symptom? @ -Finger pain Acute, or Chronic, or Acute on Chronic? @ -Acute Uncomplicated (without systemic symptoms) or Complicated (systemic symptoms)? @ -Uncomplicated Side effects of treatment? @ -No Exacerbation, Progression, or Severe Exacerbation? @ -No Poses a threat to life or bodily function? How? (Chest pain, USA, NH, pneumonia, PE, COPD, DKA, ARF, appy, cholecystitis, CVA, Diverticulitis, Homicidal, Suicidal, threat to staff... and all critical care pts) @ -No - Radiology Data Radiology results: report reviewed, image reviewed Disposition Clinical Impression: Finger pain Disposition: HOME SELF-CARE Condition: Stable Instructions (If sedation given, give patient instructions): Finger Sprain (ED) Additional Instructions: You may take [id number] Tylenol and ibuprofen for pain control. Follow-up with PCP. Return to the ER for any new or worsening symptoms. Is patient prescribed a controlled substance at d/c from ED?: No Referrals: Scott Stovall MD [Primary Care Provider] - 1-2 days Time of Disposition: 13:32
[2023-11-19 14:04] VITALS: BP 136/80; PULSE 79; RESP 18; TEMP 97.6
== END 2023-11-19 13:55 | disposition home or self-care (01) ==
LOC: EC 11:56
CPT/HCPCS: 99283